=== PATIENT | male | born 1975 ===

== ENCOUNTER 2018-12-16 18:05 | Emergency (ER) | payer OTHER, SELFPAY ==
[2018-12-16] MEDS ORDERED: Ibuprofen 200 MG TAB ONE (19:07)
[2018-12-16] MEDS ORDERED: traMADol HCl 50 MG TAB ONE (19:07)
== END 2018-12-16 19:14 | disposition home or self-care (01) ==
LOC: ERS 18:05
DX: K04.7 Periapical abscess without sinus (principal); K02.9 Dental caries, unspecified; K03.81 Cracked tooth; F41.9 Anxiety disorder, unspecified; F31.9 Bipolar disorder, unspecified; F17.210 Nicotine dependence, cigarettes, uncomplicated
CPT/HCPCS: 99282